=== PATIENT | female | born 1955 | race Caucasian/White ===

== ENCOUNTER 2021-06-11 07:29 | Day surgery (SDC) | payer OTHER, MEDICARE ==
[2021-06-09 12:11] LABS: BASOPHILS % (AUTO) 0.7 % (0.0-5.0); EOSINOPHILS % (AUTO) 6.5 % (0.0-8.0); HEMATOCRIT 36.7 % (36-48); LYMPHOCYTES % (AUTO) 23.6 % (21.0-51.0); MEAN CORPUSCULAR HEMOGLOBIN 22.2 pg (27.0-33.0); MEAN CORPUSCULAR HGB CONC 31.3 g/dL (32.0-36.0); MEAN CORPUSCULAR VOLUME 70.7 fL (79-99); MONOCYTES % (AUTO) 7.3 % (3.0-13.0); NEUTROPHILS % (AUTO) 61.6 % (40.0-77.0); PLATELET COUNT (AUTO) 121 K/uL (130-400); RED BLOOD CELL COUNT(AUTO) 5.19 MIL/uL (4.00-5.50); WHITE BLOOD COUNT (AUTO) 6.8 K/uL (4.8-10.8)
[2021-06-09 12:17] LABS: CREATININE 0.7 mg/dL (0.5-1.5); POTASSIUM 4.6 mmol/L (3.5-5.1)
[2021-06-09 12:49] VITALS: BP 140/67
[2021-06-11] VITALS (15 sets, daily range): BP systolic 114–142; BP diastolic 58–77
[~2021-06-11] VITALS: Ht 170.2 cm; Wt 63.0 kg
[~2021-06-11 07:29] MED LIST: LEVO50CA4 PO; LISI10TA24 PO; METO50TA18 PO; NAPR-1192 PO; ROSU10TA28 PO
[2021-06-11] MEDS ORDERED: CEFAZOLIN SODIUM 1 GM VIAL ONE ×2 (07:37→10:48)
[2021-06-11] MEDS ORDERED: LACTATED RINGERS 1000ML 1,000 ML IV ONE (07:37)
[2021-06-11] MEDS ORDERED: LIDOCAINE PF 100MG/5ML (2%) SYRINGE 5ML ONE (10:18)
[2021-06-11] MEDS ORDERED: MIDAZOLAM HCL 1 MG/ML 2ML VIAL ONE (10:19)
[2021-06-11] MEDS ORDERED: PROPOFOL 10 MG/ML 20ML VIAL IV ONE (10:19)
[2021-06-11] MEDS ORDERED: CEFAZOLIN SODIUM 2 GM VIAL IV ONE (10:40)
[2021-06-11] MEDS ORDERED: DEXAMETHASONE SOD PHOSPHATE 10MG/ML 1ML VIAL ONE (10:43)
[2021-06-11] MEDS ORDERED: ONDANSETRON 4MG INJ ONE (10:43)
[2021-06-11] MEDS ORDERED: BUPIVACAINE/PF 0.25% 30ML VIAL IJ ONE (10:48)
[2021-06-11] MEDS ORDERED: GLYCOPYRROLATE 1 MG/5 ML SYRINGE ONE (10:50)
[2021-06-11] MEDS ORDERED: FENTANYL CITRATE PF 50 MCG/1 ML 2ML VIAL ONE (11:19)
[2021-06-11] MEDS ORDERED: ACET1TAB25 PO (12:03)
[2021-06-11] MEDS ORDERED: CEPH500B PO (12:03)
== END 2021-06-11 14:10 | disposition home or self-care (01) ==
LOC: DAH 07:29
PROVIDERS: ATTEND Orthopaedic Surgery
DX: M67.432 Ganglion, left wrist (principal); M62.422 Contracture of muscle, left upper arm; M25.532 Pain in left wrist; M19.032 Primary osteoarthritis, left wrist; I10 Essential (primary) hypertension; E78.5 Hyperlipidemia, unspecified; M06.9 Rheumatoid arthritis, unspecified; Z79.899 Other long term (current) drug therapy; Z20.822 Contact with and (suspected) exposure to COVID-19
CPT/HCPCS: 25111; 36415; 80048; 85025; 87635; 93005; A4215; A4221; A4222; A4223; A4452; A4649; A4663; A4930; A5120; C9803; J0690 ×3; J1100; J2001; J2250; J2405; J2704; J3010; J3490 ×2; J7030; J7120 ×2